=== PATIENT | female | born 1965 | race Caucasian/White ===

== ENCOUNTER 2024-04-30 11:13 | Emergency (ER) | payer MEDICAID, SELFPAY ==
--- NOTE | 2024-04-30 11:32 | XR_ITS ---
Examination: Shoulder,right, 3 views Technique: Shoulder AP internal rotation, AP external rotation, Y view shoulder, 3 views Exam date and time :April 30, 2024 1155 hours INDICATIONS: Right shoulder pain beginning 4 days ago. FINDINGS: Moderate osteopenia Moderate narrowing glenohumeral joint No shoulder fracture or dislocation Moderate osteoarthritis acromioclavicular joint IMPRESSION: Moderate osteoarthritis
[2024-04-30 11:33] VITALS: BP 147/78; PULSE 107; RESP 18; TEMP 36.6; O2SAT 97; BMI 44.0
--- NOTE | 2024-04-30 11:35 | PD.EDUPEX ---
Upper Extremity Injury RME/HPI General Chief Complaint: Extremity Injury, Upper Stated Complaint: RIGHT SHOULDER PAIN Time Seen by Provider: 04/30/24 11:17 Arrival date/time: 04/30/24 11:13 58-year-old female with chronic right shoulder pain presents emergency department today stating that her pain in her right shoulder has exacerbated the last 4 days patient does report having surgery on her right shoulder 8 months ago Limitations: no limitations Related Data Previous Rx's ?Medication ?Instructions ?Recorded ipratropium 0.5 mg-albuterol 3 mg 3 ml inhalation QID PRN shortness 01/28/22 (2.5 mg base)/3 mL nebulization of breath or wheezing #90 mL soln albuterol sulfate 2.5 mg/3 mL 2.5 mg (3 mL) inhalation Q4H PRN 11/13/22 (0.083 %) solution for nebulization shortness of breath or wheezing #90 mL nystatin-triamcinolone 100,000 1 applic topical TID #60 grams 11/13/22 unit/g-0.1 % topical cream albuterol sulfate 90 mcg/actuation 2 puff inhalation Q6H PRN 11/16/22 aerosol inhaler shortness of breath or wheezing #8.5 grams cyclobenzaprine 10 mg tablet 10 mg PO TID PRN muscle spasm 10 04/30/24 days #30 tab-caps ibuprofen 600 mg tablet 600 mg PO Q6H #30 tabs 04/30/24 Allergies Allergy/AdvReac Type Severity Reaction Status Date / Time Penicillins Allergy Intermediate RASH Verified 11/16/22 08:50 Sulfa (Sulfonamide Allergy Unknown ORAL Verified 11/16/22 08:50 Antibiotics) SWELLING hydrogen peroxide Allergy Verified 11/16/22 08:50 codeine AdvReac Intermediate STOMACH Verified 10/09/22 08:18 UPSET Review of Systems Review of Systems Systems Reviewed: All systems reviewed, normal except as documented Constitutional Constitutional: Reports system reviewed and no additional complaints, except as documented, Denies fever(s) and Denies headache(s) Eyes Eyes: Reports system reviewed and no additional complaints, except as documented and Denies blurry vision ENT Ears, Nose, Mouth, and Throat: Reports system reviewed and no additional complaints, except as documented, Denies headache(s), Denies nasal congestion and Denies nasal discharge Cardiovascular Cardiovascular: Reports system reviewed and no additional complaints, except as documented, Denies chest pain and Denies dyspnea Respiratory Respiratory: Reports system reviewed and no additional complaints, except as documented, Denies chest congestion, Denies cough and Denies dyspnea Gastrointestinal Gastrointestinal: Reports system reviewed and no additional complaints, except as documented and Denies abdominal pain Musculoskeletal Musculoskeletal: Reports system reviewed and no additional complaints, except as documented, Reports arthralgias, Denies joint swelling, Denies numbness, Reports stiffness and Denies tingling Integumentary/Breasts Skin/Breast: Reports system reviewed and no additional complaints, except as documented and Denies rash Neurologic Neurologic: Reports system reviewed and no additional complaints, except as documented, Reports as per HPI, Denies headache(s), Denies numbness and Denies tingling Past Medical History Past Medical History NEUROLOGIC: Negative Neurological Disorders CARDIAC: Negative Congestive Heart Failure RESPIRATORY: Positive Chronic Obstructive Pulmonary Disease (COPD) and Asthma GENITOURINARY: Negative Renal Disease MUSCULOSKELETAL: Positive Arthritis, Degenerative Disk Disease and Degenerative Joint Disease ENDOCRINE: Negative Diabetes Mellitus Type 1 or Diabetes Mellitus Type 2 Surgical History SURGICAL: Positive Tubal Ligation Social History SMOKING STATUS: Heavy (> 1 pack/day) SECOND HAND EXPOSURE: Yes ED Exam General Limitations: Present no limitations General appearance: Present alert and in no apparent distress Head Head exam: Present atraumatic Eye Eye exam: Present normal appearance, PERRL and EOMI ENT ENT exam: Present normal exam, normal oropharynx and mucous membranes moist Neck Neck exam: Present normal inspection, full ROM and trachea midline Chest Chest inspection: Present normal inspection and symmetric chest wall rise Respiratory Respiratory exam: Present normal lung sounds bilaterally Cardiovascular Cardiovascular exam: Present regular rate, normal rhythm and normal heart sounds Abdominal Exam Abdominal exam: Present soft and normal bowel sounds Extremities Exam Extremities exam: Present normal inspection, full ROM, tenderness and normal capillary refill; Absent joint swelling Back Exam Back exam: Present normal inspection and full ROM Neurological Exam Neurological exam: Present alert, oriented X3 and CN II-XII intact Psychiatric Psychiatric exam: Present normal affect and normal mood Skin Skin exam: Present warm, dry, intact and normal color Course Quality Measures none Orders Category Date Time Status XR shoulder RT min 2V Stat Exams 04/30/24 11:32 Completed Ketorolac Inj [Toradol Inj] Med 04/30/24 11:32 Discontinued 30 mg IM X1 ONE Vital Signs Vital signs: Vital Signs Temperature 97.9 F 04/30/24 11:33 Pulse Rate 107 H 04/30/24 11:33 Respiratory Rate 18 04/30/24 11:33 Blood Pressure 147/78 H 04/30/24 11:33 Pulse Oximetry (%) 97 04/30/24 11:33 Oxygen Delivery Method Room Air 04/30/24 11:33 o2 sat 97% r/a wnl Extremity Injury MDM Narrative MDM Narrative:: 58-year-old female with chronic right shoulder pain presents emergency department today stating that her pain in her right shoulder has exacerbated the last 4 days patient does report having surgery on her right shoulder 8 months ago X-ray right shoulder obtained no acute emergent findings noted Patient given Toradol for pain Patient discharged home with pain medication Explained the patient she must follow-up with her primary care doctor or specialist and request outpatient MRI for further evaluation and treatment Patient data External records reviewed:: [facility] previous records Clinical information provided by:: patient Social determinants that could affect healthcare access:: none Patient has the following chronic illnesses:: See history How is presenting disease/condition affected by chronic disease/condition?: caused by Evaluation data The following diagnostics were reviewed and interpreted by me:: radiology exam(s) Lab and/or radiology exams considered but not ordered:: Radiology obtained Interpretation Summary: Reviewed by me Medications / Prescriptions Medications or Prescriptions considered but not ordered:: Given Medication administrations:: Medication Administration History Discontinued Medications Ketorolac Tromethamine (Ketorolac Inj 30 Mg/Ml Vial) 30 mg IM X1 ONE Stop: 04/30/24 11:33 Last Admin: 04/30/24 11:38 Dose: 30 mg Documented By: MP Given Consultations Consultation(s) initiated? (list below): No Diagnosis Upper Extremity Injury Differential Diagnosis: other (Shoulder sprain, shoulder fracture) Most likely diagnosis given after review of the tests above:: Shoulder sprain Admission Indicated Admission indicated?: not indicated Admission Request Was there a request for admission?: No Disposition Plan Disposition Plan: Discharge Discharge Attestation Discharge Attestation: The patient and all family members were given an opportunity to ask questions and understood the discharge instructions. Discharge instructions specifically effects, indications for sooner follow up or return to the emergency department, and the expected course of current diagnosis. Patient condition: Stable Discharge Plan Plan Patient Disposition: HOME (Self Care) Disposition Comment: Stable Prescriptions/Referrals Prescriptions/Med Rec: New cyclobenzaprine 10 mg tablet 10 mg PO TID PRN (Reason: muscle spasm) 10 Days Qty: 30 0RF ibuprofen 600 mg tablet 600 mg PO Q6H Qty: 30 0RF No Action albuterol sulfate 2.5 mg /3 mL (0.083 %) solution for nebulization 2.5 mg inhalation Q4H PRN (Reason: shortness of breath or wheezing) Qty: 90 0RF nystatin-triamcinolone 100,000-0.1 unit/g-% cream 1 applic topical TID Qty: 60 1RF albuterol sulfate 90 mcg/actuation HFA aerosol inhaler 2 puff inhalation Q6H PRN (Reason: shortness of breath or wheezing) Qty: 8.5 3RF ipratropium-albuterol 0.5 mg-3 mg(2.5 mg base)/3 mL solution for nebulization 3 ml inhalation QID PRN (Reason: shortness of breath or wheezing) Qty: 90 0RF Referrals: Juancho Rudolph PA-C [Primary Care Provider] - 05/01/24 Problem List Clinical Impression: Osteoarthritis of right shoulder region Patient/Caregiver Discharge Instructions Education Materials: Osteoarthritis Additional Instructions: Please follow-up with your orthopedist as discussed for worsening symptoms return immediately Print Language: Mohawk Stand Alone Forms: Cady Award Info., Patient Portal Info Letter PA/FRANCESCO Supervising Physician JANNETH/FRANCESCO Supervising Physician: Dr. Stanton
[2024-04-30] MEDS: KETOROLAC INJ 30 MG/ML VIAL IM (11:38)
== END 2024-04-30 13:10 | disposition home or self-care (01) ==
PROVIDERS: Emergency Provider Emergency Medicine; PCP Family Medicine
DX: M19.011 Primary osteoarthritis, right shoulder (principal)
CPT/HCPCS: 73030; 96372; 99283; J1885

== ENCOUNTER 2024-05-21 09:09 | Emergency (ER) | payer MEDICAID, SELFPAY ==
[2024-05-21 09:21] VITALS: BP 133/76; PULSE 93; RESP 20; TEMP 37.1; O2SAT 96; BMI 44.4
--- NOTE | 2024-05-21 09:26 | XR_ITS ---
Examination: PA lateral chest 2 views TECHNIQUE: Upright PA lateral chest 2 views Exam date and time: May 21, 2024 0949 hours Comparison June 17, 2022 INDICATIONS: Coughing beginning 2 weeks ago. FINDINGS: Accentuation basilar bronchovascular markings Normal heart size No lobar pneumonia IMPRESSION: Basilar bronchitis pattern
[2024-05-21] MEDS: DEXAMETHASONE SOD PHOS INJ 10 MG/ML VIAL PO (09:45)
[2024-05-21] MEDS: ALBUTEROL/IPRATROPIUM (Duoneb) RT SOL 3 ML NEBU INH ×2 (10:12→10:14)
[2024-05-21 10:16] VITALS: PULSE 93; RESP 21; O2SAT 99
--- NOTE | 2024-05-21 10:59 | PD.EDADULT ---
ED General RME/HPI General Chief complaint: General Adult/Misc Complain Stated complaint: NOT FEELING RIGHT, SICK SINCE SAT Time Seen by Provider: 05/21/24 09:17 Arrival date/time: 05/21/24 09:09 58-year-old female everyday smoker presents the emergency department complaints of cough, congestion, headache, body aches ongoing since Sunday. Patient reports recently taking course of antibiotics/azithromycin as well as a course of steroids patient reports her symptoms have not improved Limitations: no limitations Related Data Previous Rx's ?Medication ?Instructions ?Recorded ipratropium 0.5 mg-albuterol 3 mg 3 ml inhalation QID PRN shortness 01/28/22 (2.5 mg base)/3 mL nebulization of breath or wheezing #90 mL soln albuterol sulfate 2.5 mg/3 mL 2.5 mg (3 mL) inhalation Q4H PRN 11/13/22 (0.083 %) solution for nebulization shortness of breath or wheezing #90 mL nystatin-triamcinolone 100,000 1 applic topical TID #60 grams 11/13/22 unit/g-0.1 % topical cream albuterol sulfate 90 mcg/actuation 2 puff inhalation Q6H PRN 11/16/22 aerosol inhaler shortness of breath or wheezing #8.5 grams ibuprofen 600 mg tablet 600 mg PO Q6H #30 tabs 04/30/24 amoxicillin 875 mg-potassium 1 tab PO BID 7 days #14 tabs 05/21/24 clavulanate 125 mg tablet prednisone 10 mg tablet 30 mg (3 x 10 mg) PO BID 3 days 05/21/24 #18 tabs Allergies Allergy/AdvReac Type Severity Reaction Status Date / Time Penicillins Allergy Intermediate RASH Verified 11/16/22 08:50 Sulfa (Sulfonamide Allergy Unknown ORAL Verified 11/16/22 08:50 Antibiotics) SWELLING hydrogen peroxide Allergy Verified 11/16/22 08:50 codeine AdvReac Intermediate STOMACH Verified 10/09/22 08:18 UPSET Review of Systems Respiratory Respiratory: Reports system reviewed and no additional complaints, except as documented, Reports chest congestion, Reports cough, Reports excessive phlegm production and Reports wheezing Allergic/Immunologic Allergic/Immunologic: Reports wheezing Past Medical History Past Medical History NEUROLOGIC: Negative Neurological Disorders CARDIAC: Negative Congestive Heart Failure RESPIRATORY: Positive Chronic Obstructive Pulmonary Disease (COPD) and Asthma GENITOURINARY: Negative Renal Disease MUSCULOSKELETAL: Positive Arthritis, Degenerative Disk Disease and Degenerative Joint Disease ENDOCRINE: Negative Diabetes Mellitus Type 1 or Diabetes Mellitus Type 2 Surgical History SURGICAL: Positive Tubal Ligation Social History SMOKING STATUS: Current every day smoker SECOND HAND EXPOSURE: Yes ED Exam General Limitations: Present no limitations General appearance: Present alert and in no apparent distress Head Head exam: Present atraumatic, normocephalic and normal inspection Eye Eye exam: Present normal appearance, PERRL and EOMI; Absent conjunctival injection ENT ENT exam: Present normal exam, normal oropharynx and mucous membranes moist Neck Neck exam: Present normal inspection, full ROM and trachea midline Chest Chest inspection: Present normal inspection and symmetric chest wall rise Respiratory Respiratory exam: Present wheezes and other (Rhonchi bilateral); Absent respiratory distress, stridor or accessory muscle use Cardiovascular Cardiovascular exam: Present regular rate, normal rhythm and normal heart sounds Abdominal Exam Abdominal exam: Present soft and normal bowel sounds; Absent distention, tenderness, guarding, rebound or rigidity Extremities Exam Extremities exam: Present normal inspection and full ROM Back Exam Back exam: Present normal inspection and full ROM Neurological Exam Neurological exam: Present alert, oriented X3 and CN II-XII intact Psychiatric Psychiatric exam: Present normal affect and normal mood Skin Skin exam: Present warm, dry, intact and normal color Course Quality Measures none Orders Category Date Time Status Bedside Influenza A&B Antigen Test NOW Care 05/21/24 09:26 Completed XR chest 2V Stat Exams 05/21/24 09:26 Completed Albuterol/Ipratr Rt Tana [Duoneb Rt Tana] Med 05/21/24 09:26 Discontinued 3 ml INH X1 ONE Albuterol/Ipratr Rt Tana [Duoneb Rt Tana] Med 05/21/24 09:54 Discontinued 3 ml INH X1 ONE Dexamethasone Inj [Decadron Inj] Med 05/21/24 09:26 Discontinued 10 mg PO X1 ONE Vital Signs Vital signs: Vital Signs Temperature 98.7 F 05/21/24 09:21 Pulse Rate 93 05/21/24 09:21 Respiratory Rate 20 05/21/24 09:21 Blood Pressure 133/76 H 05/21/24 09:21 Pulse Oximetry (%) 96 05/21/24 09:21 Oxygen Delivery Method Room Air 05/21/24 09:21 O2 saturation 96% room air within normal limits MDM Patient data External records reviewed:: [facility] previous records Clinical information provided by:: patient Social determinants that could affect healthcare access:: none Patient has the following chronic illnesses:: See history How is presenting disease/condition affected by chronic disease/condition?: exacerbated by Evaluation data The following diagnostics were reviewed and interpreted by me:: lab results and radiology exam(s) Lab and/or radiology exams considered but not ordered:: Labs and radiology obtained Interpretation Summary: Reviewed by me Medications Medications considered but not ordered:: Given Medication administrations:: Medication Administration History Discontinued Medications Albuterol/Ipratropium (Albuterol/Ipratropium (Duoneb) Rt Tana 3 Ml Nebu) 3 ml INH X1 ONE Stop: 05/21/24 09:27 Last Admin: 05/21/24 10:12 Dose: 3 ml Documented By: ZAYNAB Albuterol/Ipratropium (Albuterol/Ipratropium (Duoneb) Rt Tana 3 Ml Nebu) 3 ml INH X1 ONE Stop: 05/21/24 09:55 Last Admin: 05/21/24 10:14 Dose: 3 ml Documented By: ZAYNAB Dexamethasone Sodium Phosphate (Dexamethasone Sod Phos Inj 10 Mg/Ml Vial) 10 mg PO X1 ONE Stop: 05/21/24 09:27 Last Admin: 05/21/24 09:45 Dose: 10 mg Documented By: CHONG Given Consultations Consultation(s) initiated? (list below): No Diagnosis Differential Diagnosis ED Complaint MDM: URI, viral illness, COVID-19, pneumonia Most likely diagnosis given after review of the tests above:: URI, wheezing Admission Indicated Admission indicated?: not indicated Explain why admission is indicated or not indicated:: No criteria Admission Request Was there a request for admission?: No Disposition Plan Disposition Plan: Discharge Discharge Attestation Discharge Attestation: The patient and all family members were given an opportunity to ask questions and understood the discharge instructions. Discharge instructions specifically effects, indications for sooner follow up or return to the emergency department, and the expected course of current diagnosis. Patient condition: Stable Medical Decision Making MDM Narrative MDM Narrative: 58-year-old female everyday smoker presents the emergency department complaints of cough, congestion, headache, body aches ongoing since Sunday. Patient reports recently taking course of antibiotics/azithromycin as well as a course of steroids patient reports her symptoms have not improved On exam patient is sinus tenderness patient reports no dizziness or weakness On exam patient has wheezing and rhonchi bilateral upper lobes Patient given breathing treatment as well as steroids here Chest x-ray obtained no acute infiltrates noted but x-ray consistent with bronchitis which is consistent with patient's symptoms Patient checked for the flu which came back negative At the time reevaluation patient reports that she does feel her symptoms have improved At the time of discharge patient reports no chest pain or shortness of breath I did explain to the patient she should continue seeing her albuterol nebulizer treatments at home every 4-6 hours Patient discharged home in no distress to follow-up with primary care doctor in the next 24 to 48 hours and for any worsening symptoms to return to the ER immediately Differential Diagnosis Differential Diagnosis: URI, viral illness, COVID-19, pneumonia Medical Records Medical records reviewed: Yes I reviewed the patient's medical records. Discharge Plan Plan Patient Disposition: HOME (Self Care) Disposition Comment: Stable Prescriptions/Referrals Prescriptions/Med Rec: New prednisone 10 mg tablet 30 mg PO BID 3 Days Qty: 18 0RF amoxicillin-pot clavulanate 875-125 mg tablet 1 tab PO BID 7 Days Qty: 14 0RF No Action albuterol sulfate 2.5 mg /3 mL (0.083 %) solution for nebulization 2.5 mg inhalation Q4H PRN (Reason: shortness of breath or wheezing) Qty: 90 0RF nystatin-triamcinolone 100,000-0.1 unit/g-% cream 1 applic topical TID Qty: 60 1RF albuterol sulfate 90 mcg/actuation HFA aerosol inhaler 2 puff inhalation Q6H PRN (Reason: shortness of breath or wheezing) Qty: 8.5 3RF ipratropium-albuterol 0.5 mg-3 mg(2.5 mg base)/3 mL solution for nebulization 3 ml inhalation QID PRN (Reason: shortness of breath or wheezing) Qty: 90 0RF ibuprofen 600 mg tablet 600 mg PO Q6H Qty: 30 0RF Referrals: Juancho Rudolph PA-C [Primary Care Provider] - In 1 week Problem List Clinical Impression: Bronchitis, Wheezing Patient/Caregiver Discharge Instructions Education Materials: ED Bronchitis with Wheezing (Adult) Additional Instructions: Please follow up with your primary care doctor in the next 24-48hrs for any worsening symptoms return here immediately Print Language: [place] Rican Stand Alone Forms: Cady Award Info., Patient Portal Info Letter PA/STORES CLERK Supervising Physician PA/STORES CLERK Supervising Physician: Dr. Stanton
== END 2024-05-21 11:07 | disposition home or self-care (01) ==
PROVIDERS: Emergency Provider Emergency Medicine; PCP Family Medicine
DX: J40 Bronchitis, not specified as acute or chronic (principal)
CPT/HCPCS: 71046; 87400; 94640; 99283; A9270; J1100

== ENCOUNTER 2024-07-05 06:56 | Emergency (ER) | payer MEDICAID, SELFPAY ==
[2024-07-05 06:57] VITALS: BMI 43.4
[2024-07-05 07:24] VITALS: BP 139/86; PULSE 85; RESP 16; TEMP 36.7; O2SAT 96
--- NOTE | 2024-07-05 07:39 | PD.EDRME ---
Rapid Medical Screening Exam RME Arrival date/time: 07/05/24 06:56 This is a 58-year-old female presents to the emergency department with complaints of dizziness that began at 6 AM upon awakening. + Nausea, no emesis. I have greeted and performed a focused initial assessment of this patient. Initial appropriate labs ordered at this time. A comprehensive ED assessment and evaluation of the patient and analysis of all test and completion of medical decision making process will be conducted by additional ED provider. Chief Complaint: Dizziness Time Seen by Provider: 07/05/24 07:14 Vital signs: Vital Signs Temperature 98.0 F 07/05/24 07:24 Pulse Rate 85 07/05/24 07:24 Respiratory Rate 16 07/05/24 07:24 Blood Pressure 139/86 H 07/05/24 07:24 Pulse Oximetry (%) 96 07/05/24 07:24 Oxygen Delivery Method Room Air 07/05/24 07:24
--- NOTE | 2024-07-05 07:40 | EKG_ITS ---
[facility] Test Date: 2024-07-05 Pat Name: LESLEY HUTCHINSON Department: Room: - Gender: Female Health Information Tech: : 1965 Requested By: Usha Mtz ([facility]) Dandre Order Number: [id number] Reading MD: Usha Mtz ([facility]) Dandre Measurements Intervals Alba Rate: 83 P: 52 LA: 155 QRS: 61 QRSD: 92 T: 58 QT: 343 QTc: 405 Interpretive Statements SINUS RHYTHM LOW QRS VOLTAGE IN PRECORDIAL LEADS [QRS DEFLECTION < 1.0 mV IN CHEST LEADS] No previous ECG available for comparison /[id number]/S0/[id number].pdf
--- NOTE | 2024-07-05 07:40 | XR_ITS ---
Examination: AP chest single view Technique or represent to chest single view Exam date and time: July 05, 2024 0812 hours Comparison May 21, 2024 INDICATIONS: Dizziness today. FINDINGS: Mild vascular congestion No aspiration pneumonia Normal heart size Moderate osteopenia IMPRESSION: No aspiration pneumonia
--- NOTE | 2024-07-05 07:40 | XR_ITS ---
Examination: CT brain head without contrast. 2-D sagittal coronal reconstructions Date and time of exam:July 05, 2024 0750 hours Comparison October 02, 2016 INDICATIONS: Dizziness beginning this morning CTDI: vol (mGy):75.9 DLP: (mGycm):1493 Technique: Multiple CT axial sections of the brain have been obtained, 5 mm slice thickness. Contrast has not been administered. 2-D sagittal, coronal reconstructions have been obtained Low dose protocols were performed. One or more of the following dose reduction techniques were used; automated exposure control, adjustment of the mA and/or KV according to patient size, use of iterative reconstruction technique. Findings: No significant ventricular enlargement. Intra-axial or extra-axial hemorrhage density is not seen. No mass effect or midline shift Basal cisterns are not remarkable. Fourth ventricle is midline. Cranial vault intact. Impression: Negative for acute hemorrhage, mass effect or midline shift If symptoms persist, consider brain MRI follow-up
[2024-07-05] MEDS: MECLIZINE HCL 25 MG TABLET PO ×2 (07:45→11:40)
[2024-07-05 08:29] LABS: Prothrombin Time 10.9 Seconds (9.0-12.2)
[2024-07-05 08:35] LABS: Basophils # (Auto) 0.1 Thou/mm3 (0.0-0.2); Basophils % (Auto) 1 % (0-2.5); Eosinophils # (Auto) 0.2 Thou/mm3 (0.0-0.5); Eosinophils % (Auto) 2 % (0-10); Hematocrit 44.9 % (36.0-46.0); Hemoglobin 15.1 g/dL (12.0-16.0); Immature Granulocytes % (Auto) 0 % (0-0); Immature Granulocytes Auto 0.04 Thou/mm3 (0.00-0.00); Lymphocytes # (Auto) 2.2 Thou/mm3 (1.0-4.8); Lymphocytes % (Auto) 20 % (10-50); Mean Corpuscular HGB Conc 33.6 g/dl (31.0-37.0); Mean Corpuscular Hemoglobin 30.4 pg (25.0-35.0); Mean Corpuscular Volume 90 fL (80-100); Monocytes # (Auto) 0.6 Thou/mm3 (0.0-0.8); Monocytes % (Auto) 6 % (0-12); Neutrophils # (Auto) 7.9 Thou/mm3 (1.8-7.7); Neutrophils % (Auto) 72 % (37-80); Nucleated Red Blood Cell % 0 /100 WBC (0); Platelet Count 315 Thou/mm3 (140-440); RDW Standard Deviation 44.4 fL (36.4-46.3); Red Blood Count 4.97 Miln/mm3 (4.00-5.20)
[2024-07-05 08:47] LABS: Alanine Aminotransferase 11 U/L (10-49); Albumin, Serum 4.7 gm/dL (3.5-5.0); Albumin/Globulin Ratio 1.5 (1.2-2.2); Alkaline Phosphatase 160 U/L (46-116); Anion Gap 6 (7-16); Aspartate Amino Transferase < 10 U/L (0-34); BUN/Creatinine Ratio 8 Ratio (12-20); Bilirubin,Total 0.3 mg/dL (0.3-1.2); Blood Urea Nitrogen 7 mg/dL (9-23); Calcium 9.7 mg/dL (8.3-10.6); Calcium (Corrected) 9.7 mg/dL (8.5-10.1); Carbon Dioxide 26.9 mMol/L (20.0-31.0); Chloride 105 mMol/L (98-107); Creatinine (Component) 0.9 mg/dL (0.6-1.3); Estimated Creatinine Clearance 69.8 mL/min (>60); Globulin 3.1 gm/dL (2.3-3.5); Glucose 145 mg/dL (74-106); Osmolality,Calculated 276 (275-295); Potassium 4.6 mMol/L (3.4-5.1); Sodium 138 mMol/L (136-145); Total Protein 7.8 gm/dL (5.7-8.2); Troponin I < 0.002 ng/mL (0.0-0.045); eGFR > 60 See Note
[2024-07-05 09:16] LABS: Collection Type, Urine Clean Catch
[2024-07-05 09:30] LABS: Amphetamine/Methamp Scrn,U Negative (Negative); Barbiturate Screen,Urine Negative (Negative); Benzodiazepines Screen,Urine Negative (Negative); Benzoylecgonine Screen, Ur Negative (Negative); Fentanyl Screen,Urine Negative (Negative); Opiate Screen,Urine Negative (Negative); THC Screen,Urine Negative (Negative)
[2024-07-05 10:11] LABS: Bacteria,Urine 1+; Bilirubin,Urine Negative (Negative); Blood,Urine Negative (Negative); Color,Urine Lt-Yellow (Lt Yel-Yel); Glucose, Urine Negative (Negative); Granular Casts,Urine < 1 /hpf (0-1); Ketones,Urine Negative (Negative); Leukocyte Esterase,Urine Negative (Negative); Nitrite,Urine Negative (Negative); PH,Urine 5.5 (5.0-7.0); Protein,Urine Trace (Neg - Trace); RBC,Urine 2 /hpf (0-3); Specific Gravity,Urine 1.013 (1.001-1.035); Squamous Epithelial Cell,Urine 6 /hpf (0-5); Transitional Epi Cells,Urine < 1 /hpf (0-5); Urobilinogen,Urine Negative mg/dL (0.0-1.0); WBC,Urine 4 /hpf (0-5)
[2024-07-05 10:15] LABS: Clarity,Urine Hazy (Clear/Hazy)
--- NOTE | 2024-07-05 11:34 | EDNOTE_ITS ---
ED Dizzyness RME/HPI General Chief Complaint: Dizziness Stated Complaint: DIZZINESS WITH BLURRY VISION Time Seen by Provider: 07/05/24 07:14 Arrival date/time: 07/05/24 06:56 RME / HPI RME / HPI Narrative: 58-year-old female patient with no significant medical history, came in for evaluation regarding dizziness. Patient woke up this morning with dizziness, described as feeling like falling off the bed, room spinning, and blurry vision, severity of symptoms moderate. Patient also vomited once today. Nonbloody. Patient denies any neck pain. Denies any headache. Patient is having difficulty ambulating due to dizziness without holding onto something. Patient denies any fever. Denies any head injury or recent trauma. No medication was taken prior to arrival. Related Data Previous Rx's ?Medication ?Instructions ?Recorded ipratropium 0.5 mg-albuterol 3 mg 3 ml inhalation QID PRN shortness 01/28/22 (2.5 mg base)/3 mL nebulization of breath or wheezing #90 mL soln albuterol sulfate 2.5 mg/3 mL 2.5 mg (3 mL) inhalation Q4H PRN 11/13/22 (0.083 %) solution for nebulization shortness of breath or wheezing #90 mL nystatin-triamcinolone 100,000 1 applic topical TID #60 grams 11/13/22 unit/g-0.1 % topical cream albuterol sulfate 90 mcg/actuation 2 puff inhalation Q6H PRN 11/16/22 aerosol inhaler shortness of breath or wheezing #8.5 grams ibuprofen 600 mg tablet 600 mg PO Q6H #30 tabs 04/30/24 meclizine 50 mg tablet 50 mg PO BID PRN dizziness #30 tabs 07/05/24 Allergies Allergy/AdvReac Type Severity Reaction Status Date / Time Penicillins Allergy Intermediate RASH Verified 11/16/22 08:50 Sulfa (Sulfonamide Allergy Unknown ORAL Verified 11/16/22 08:50 Antibiotics) SWELLING hydrogen peroxide Allergy Verified 11/16/22 08:50 codeine AdvReac Intermediate STOMACH Verified 10/09/22 08:18 UPSET Review of Systems Review of Systems Narrative Review of Systems: Review of system reviewed and within normal limits except mentioned in HPI ED Exam Narrative Physical exam: VITAL SIGNS: Reviewed. GENERAL APPEARANCE: Alert and interactive, follows commands, no acute distress, HEAD AND FACE: Non-traumatic. ENT: PERRL, pink conjunctivitis, eyelid no trauma, Mucous membrane moist. Bilateral tympanic membrane orthospine no bulging no fluid noted behind tympanic membrane NECK: Supple, nontender, no nuchal rigidity. CHEST: No tenderness, no crepitus, no paradoxical movement, no retractions. LUNGS: Clear, well ventilated, symmetric, no rales, no wheezing, no ronchi, no stridor, good breath sounds bilaterally. HEART: Regular rate, regular rhythm, no murmur, no gallops. ABDOMEN: Soft, positive bowel sounds, nondistended, no guarding, nontender, no rebound, no masses, RECTAL: Deferred. GENITAL: Deferred. NEUROLOGICAL: Gross motor function intact sensory function intact, Appropriate for age. MUSCULOSKELETAL: low back nontender, full range of motion. EXTREMITIES: Nontender, full range of motion. SKIN: Color pink, dry, no rash, no lacerations, no abrasions, no contusions. LYMPHATICS: Deferred. 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 07/05/24 07:40 Active EKG (ED ONLY) *Do not use* NOW Care 07/05/24 07:[address] head/brain wo con Stat Exams 07/05/24 07:40 Completed EKG (ED Only) Stat Exams 07/05/24 07:40 Draft XR chest 1V portable Stat Exams 07/05/24 07:40 Completed CBC Stat Lab 07/05/24 07:59 Completed Comprehensive Metabolic Panel Stat Lab 07/05/24 07:59 Completed Drug Screen,Urine Stat Lab 07/05/24 08:14 Completed Prothrombin Time with INR Stat Lab 07/05/24 07:59 Completed Troponin I Stat Lab 07/05/24 07:59 Completed Urinalysis Stat Lab 07/05/24 08:14 Completed Acetaminophen Tab [Tylenol ES Tab] Med 07/05/24 11:33 Discontinued 1,000 mg PO X1 ONE Meclizine HCl [Antivert] Med 07/05/24 07:40 Discontinued 25 mg PO X1 ONE Meclizine HCl [Antivert] Med 07/05/24 11:33 Discontinued 25 mg PO X1 ONE Sodium Chloride 0.9% 1000 ml [Ns] 1,000 ml Med 07/05/24 11:34 Discontinued IV 999 mls/hr Vital Signs Vital signs: Vital Signs Temperature 98.0 F 07/05/24 07:24 Pulse Rate 85 07/05/24 07:24 Respiratory Rate 16 07/05/24 07:24 Blood Pressure 139/86 H 07/05/24 07:24 Pulse Oximetry (%) 96 07/05/24 07:24 Oxygen Delivery Method Room Air 07/05/24 07:24 Dizziness [facility] Narrative [facility] Narrative:: 58-year-old female patient with no significant medical history, came in for evaluation regarding dizziness. Patient woke up this morning with dizziness, described as feeling like falling off the bed, room spinning, and blurry vision, severity of symptoms moderate. Patient also vomited once today. Nonbloody. Patient denies any neck pain. Denies any headache. Patient is having difficulty ambulating due to dizziness without holding onto something. Patient denies any fever. Denies any head injury or recent trauma. No medication was taken prior to arrival. Laboratory workup including CT scan of the head came back normal. Patient was given meclizine Tylenol and IV fluids. On reevaluation patient was going to the restroom unaided with no recurrence of dizziness. Patient verbalized significant improvement symptoms. Patient appears nontoxic and hemodynamically stable. Patient discharged home and instructed to follow-up with primary care provider in 24 to 48 hours. Instructed to return to the emergency department immediately if worsening of symptoms Patient data External records reviewed:: None Clinical information provided by:: none Social determinants that could affect healthcare access:: none Patient has the following chronic illnesses:: None How is presenting disease/condition affected by chronic disease/condition?: no chronic disease Evaluation data The following diagnostics were reviewed and interpreted by me:: lab results and radiology exam(s) Lab and/or radiology exams considered but not ordered:: None Interpretation Summary: See results in [facility] Medications / Prescriptions Medications or Prescriptions considered but not ordered:: None Medication administrations:: Medication Administration History Discontinued Medications Acetaminophen (Acetaminophen 500 Mg Tablet) 1,000 mg PO X1 ONE Stop: 07/05/24 11:34 Last Admin: 07/05/24 11:39 Dose: 1,000 mg Documented By: Sita Sodium Chloride (Ns) 1,000 mls @ 999 mls/hr IV .Q1H1M ONE Stop: 07/05/24 12:34 Last Infusion: 07/05/24 12:30 Dose: Infused Documented By: Admin: 07/05/24 11:45 Dose: 999 mls/hr Documented By: JASON Meclizine HCl (Meclizine Hcl 25 Mg Tablet) 25 mg PO X1 ONE Stop: 07/05/24 07:41 Last Admin: 07/05/24 07:45 Dose: 25 mg Documented By: [facility] Meclizine HCl (Meclizine Hcl 25 Mg Tablet) 25 mg PO X1 ONE Stop: 07/05/24 11:34 Last Admin: 07/05/24 11:40 Dose: 25 mg Documented By: JASON Meclizine, IV fluids, Tylenol Consultations Consultation(s) initiated? (list below): No Diagnosis Dizziness Differential Diagnosis: adverse reaction to drug, benign paroxysmal positional vertigo and other (Dizziness) Most likely diagnosis given after review of the tests above:: Dizziness Admission Indicated Admission indicated?: not indicated Explain why admission is indicated or not indicated:: Stable Admission Request Was there a request for admission?: No Disposition Plan Disposition Plan: Discharge Discharge Attestation Discharge Attestation: The patient and all family members were given an opportunity to ask questions and understood the discharge instructions. Discharge instructions specifically effects, indications for sooner follow up or return to the emergency department, and the expected course of current diagnosis. Patient condition: Stable Discharge Plan Plan Patient Disposition: HOME (Self Care) Disposition Comment: Stable Prescriptions/Referrals Prescriptions/Med Rec: New meclizine 50 mg tablet 50 mg PO BID PRN (Reason: dizziness) Qty: 30 0RF No Action albuterol sulfate 2.5 mg /3 mL (0.083 %) solution for nebulization 2.5 mg inhalation Q4H PRN (Reason: shortness of breath or wheezing) Qty: 90 0RF nystatin-triamcinolone 100,000-0.1 unit/g-% cream 1 applic topical TID Qty: 60 1RF albuterol sulfate 90 mcg/actuation HFA aerosol inhaler 2 puff inhalation Q6H PRN (Reason: shortness of breath or wheezing) Qty: 8.5 3RF ipratropium-albuterol 0.5 mg-3 mg(2.5 mg base)/3 mL solution for nebulization 3 ml inhalation QID PRN (Reason: shortness of breath or wheezing) Qty: 90 0RF ibuprofen 600 mg tablet 600 mg PO Q6H Qty: 30 0RF Referrals: Juancho Rudolph PA-C [Primary Care Provider] - In 1 week Problem List Clinical Impression: Dizziness Patient/Caregiver Discharge Instructions Discharge Activity: activity as tolerated Education Materials: Dizziness Balance Probs Fainting Additional Instructions: Thank you for the opportunity for serving you today. You are stable for discharged . You are advised to: Follow-up with your PCP in 1 to 2 days Return to ED for worsening of symptoms Increase oral fluids Take medication as prescribed Print Language: Venezuelan Stand Alone Forms: Cady Award Info., Patient Portal Info Letter JANNETH/FRANCESCO Supervising Physician ERIC Supervising Physician: MD Sunita
[2024-07-05] MEDS: ACETAMINOPHEN 500 MG TABLET 1000 MG PO (11:39)
[2024-07-05] MEDS: SODIUM CHLORIDE 0.9% 1000 ML 1,000 ML 999 ML IV (11:45)
== END 2024-07-05 13:16 | disposition home or self-care (01) ==
PROVIDERS: Nurse Practitioner Primary Care; Emergency Provider Emergency Medicine; PCP Family Medicine
DX: R42 Dizziness and giddiness (principal)
CPT/HCPCS: 36415; 70450; 71045; 80053; 80307; 81001; 84484; 85025; 85610; 93005; 96360; 99284; J7030; A9270

== ENCOUNTER 2024-11-04 08:00 | Outpatient (RCR) | payer MEDICAID, SELFPAY ==
--- NOTE | 2024-10-21 08:36 | PT.OIERPT ---
PT OP Initial Eval Patient Information Outpatient Physical Therapy Treatment Date: 10/21/24 Visit Reasons: Vertigo Medical Diagnosis: R42 Treatment Dx #1: dizziness Start of Care: 10/21/24 Date of Onset: 5 months ago Smoking Status Smoking Status: Light (< 1 pack/day) Cessation Counseling Provided: LESLEY was advised that quitting smoking is the single most important factor to protect the health of themselves and their family. Discussed the benefits of quitting smoking with patient. Encouraged patient to quit smoking and provided Cessation assistance materials and resources. Tobacco Use: Cigarette Years smoked: 30 Are you interested in quitting?: Yes Would you like additional Smoking Cessation Counseling?: No Initial Assessment Subjective: Pt is 59 yr old female who reports dizziness x5 months. It feels like the room is spinning and affects her when she sits up, lays down and turns in bed. Sometimes she feels it when she is sitting. PMH: allergies, asthma, borderline diabetic, smoker Pt goal: to get rid of the dizziness Objective: BP: 138/88 manual check Jesus-Hallpike to R: negative nystagmus but subjective dizziness to the L: negative Smooth pursuit: WNL Visual tracking: WNL C/S ArOM: slight dizziness with extension and flexion but no significant ROM deficits. Assessment: Pt presents with negative Brenham-Hallpike testing today but subjective history is consistent with BPPV. Pt requires skilled therapy and has good rehab potential to meet goals if in fact she has BPPV. If not, this may be blood pressure related. 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 Ind with HEP 2. Reduced dizziness ssx by 75% with laying down and sitting up 3. Pt will report 50% less onset of dizziness. Treatment Plan 1. Therex including Odilia maneuvers 2. Manual therapy 3. Modalities as indicated Frequency and Duration: 2x a week for 6 weeks plus the evaluation Certification Dates: 10/21/24 to 01/21/25 Procedure Charges OP PT Eval Mod Complex 30 minutes: Yes
--- NOTE | 2024-10-27 08:29 | PT.ODAYNRPT ---
PT Outpatient Daily Note OP Daily Note Outpatient Physical Therapy Treatment Date: 10/27/24 Visit Reasons: Vertigo Subjective: Same as time of evaluation Objective: See f/S for therex Assessment: Good demo of L Odilia maneuver x3 today with continued dizziness laying down and sitting up. Plan: Continue per POC Length of Time (minutes) of Treatment: 25 Minutes Procedure Charges Therapeutic Exercise 30 minutes: Yes
--- NOTE | 2024-11-04 09:57 | PT.ODAYNRPT ---
PT Outpatient Daily Note OP Daily Note Outpatient Physical Therapy Treatment Date: 11/04/24 Visit Reasons: Vertigo Subjective: Less dizziness since last visit Objective: See f/S for therex Assessment: Good demo of L Odilia maneuver x3 today with less dizziness laying down Plan: Continue per POC Length of Time (minutes) of Treatment: 30 Minutes Procedure Charges Therapeutic Exercise 30 minutes: Yes
== END 2024-11-08 23:59 | disposition home or self-care (01) ==
LOC: CPTX 08:00
PROVIDERS: PCP Family Medicine; Referring Provider Family Medicine; Visit Provider Family Medicine
DX: R42 Dizziness and giddiness (principal); Z71.6 Tobacco abuse counseling; F17.210 Nicotine dependence, cigarettes, uncomplicated
CPT/HCPCS: 97110; 97162

== ENCOUNTER 2024-11-17 07:59 | Outpatient (RCR) | payer MEDICAID, SELFPAY ==
--- NOTE | 2024-11-17 08:20 | PT.ODAYNRPT ---
PT Outpatient Daily Note OP Daily Note Outpatient Physical Therapy Treatment Date: 11/17/24 Visit Reasons: Vertigo Subjective: Less dizziness since last visit Objective: See f/S for therex Assessment: Good demo of L Odilia maneuver x4 today with less dizziness laying down Plan: Continue per POC. Pt will call back if she gets dizzy to schedule. Length of Time (minutes) of Treatment: 30 Minutes Procedure Charges Therapeutic Exercise 15 minutes: Yes
== END 2024-12-08 23:59 | disposition home or self-care (01) ==
LOC: CPTX 07:59
PROVIDERS: PCP Family Medicine; Referring Provider Family Medicine; Visit Provider Family Medicine
DX: R42 Dizziness and giddiness (principal)
CPT/HCPCS: 97110

== ENCOUNTER 2024-12-03 10:05 | Emergency (ER) | payer MEDICAID, SELFPAY ==
[2024-12-03 10:16] VITALS: BP 153/87; PULSE 87; RESP 18; TEMP 36.9; O2SAT 96; BMI 44.2
--- NOTE | 2024-12-03 10:33 | XR_ITS ---
Examination: CT pelvis without intravenous contrast. 2-D sagittal and coronal reconstructions. Date and time of exam:December 03, 2024 1119 hours INDICATIONS: Onset left-sided hip pain today CTDI: vol (mGy) :12.8 DLP: (mGycm) : 155 Technique: Multiple 3 mm axial sections of the pelvis have been obtained with the 64 slice high resolution scanner. 2-D sagittal and coronal reconstructions. Low dose protocols were performed. One or more of the following dose reduction techniques were used; automated exposure control, adjustment of the mA and/or KV according to patient size, use of iterative reconstruction technique. Findings: Sacral segments and iliac bones acetabular regions intact Hips appear intact, mild to moderate narrowing hip joints Contracted urinary bladder 9 mm mass uterine fundus likely fibroid degeneration No pelvic hematoma No bowel obstruction IMPRESSION: Mild to moderate narrowing hip joints
[2024-12-03] MEDS: KETOROLAC INJ 60 MG/2 ML VIAL 30 MG IM (10:46)
--- NOTE | 2024-12-03 12:27 | PD.EDBACK ---
ED Back Injury Pain RME/HPI General Chief Complaint: Back Pain/Injury Stated Complaint: Left side lower back pain X 3 days Time Seen by Provider: 12/03/24 10:24 Arrival date/time: 12/03/24 10:05 59-year-old female presents emergency department today for complaints of left buttock pain radiating down the left leg Limitations: no limitations Related Data Previous Rx's ?Medication ?Instructions ?Recorded ipratropium 0.5 mg-albuterol 3 mg 3 ml inhalation QID PRN shortness 01/28/22 (2.5 mg base)/3 mL nebulization of breath or wheezing #90 mL soln albuterol sulfate 2.5 mg/3 mL 2.5 mg (3 mL) inhalation Q4H PRN 11/13/22 (0.083 %) solution for nebulization shortness of breath or wheezing #90 mL nystatin-triamcinolone 100,000 1 applic topical TID #60 grams 11/13/22 unit/g-0.1 % topical cream albuterol sulfate 90 mcg/actuation 2 puff inhalation Q6H PRN 11/16/22 aerosol inhaler shortness of breath or wheezing #8.5 grams ibuprofen 600 mg tablet 600 mg PO Q6H #30 tabs 04/30/24 meclizine 50 mg tablet 50 mg PO BID PRN dizziness #30 tabs 07/05/24 cyclobenzaprine 10 mg tablet 10 mg PO TID PRN muscle spasm 10 12/03/24 days #30 tab-caps ibuprofen 600 mg tablet 600 mg PO Q6H #30 tabs 12/03/24 Allergies Allergy/AdvReac Type Severity Reaction Status Date / Time Penicillins Allergy Intermediate RASH Verified 12/03/24 10:10 Sulfa (Sulfonamide Allergy Unknown ORAL Verified 12/03/24 10:10 Antibiotics) SWELLING hydrogen peroxide Allergy Verified 12/03/24 10:10 codeine AdvReac Intermediate STOMACH Verified 12/03/24 10:10 UPSET Review of Systems Review of Systems Systems Reviewed: All systems reviewed, normal except as documented Constitutional Constitutional: Reports system reviewed and no additional complaints, except as documented, Denies fever(s) and Denies headache(s) Eyes Eyes: Reports system reviewed and no additional complaints, except as documented and Denies blurry vision ENT Ears, Nose, Mouth, and Throat: Reports system reviewed and no additional complaints, except as documented, Denies headache(s), Denies nasal congestion and Denies nasal discharge Cardiovascular Cardiovascular: Reports system reviewed and no additional complaints, except as documented, Denies chest pain and Denies dyspnea Respiratory Respiratory: Reports system reviewed and no additional complaints, except as documented, Denies chest congestion, Denies cough and Denies dyspnea Gastrointestinal Gastrointestinal: Reports system reviewed and no additional complaints, except as documented and Denies abdominal pain Musculoskeletal Musculoskeletal: Reports system reviewed and no additional complaints, except as documented, Denies abnormal gait, Denies arthralgias, Denies back pain, Denies deformity, Denies numbness, Reports radiating pain into limb, Reports stiffness, Denies tingling and Reports other (Left buttock pain radiating down the lower left leg) Integumentary/Breasts Skin/Breast: Reports system reviewed and no additional complaints, except as documented and Denies rash Neurologic Neurologic: Reports system reviewed and no additional complaints, except as documented, Reports as per HPI, Denies abnormal gait, Denies headache(s), Denies numbness and Denies tingling Past Medical History Past Medical History NEUROLOGIC: Negative Neurological Disorders CARDIAC: Negative Congestive Heart Failure RESPIRATORY: Positive Chronic Obstructive Pulmonary Disease (COPD) and Asthma GENITOURINARY: Negative Renal Disease MUSCULOSKELETAL: Positive Arthritis, Degenerative Disk Disease and Degenerative Joint Disease ENDOCRINE: Negative Diabetes Mellitus Type 1 or Diabetes Mellitus Type 2 Surgical History SURGICAL: Positive Tubal Ligation Social History SMOKING STATUS: Current every day smoker SECOND HAND EXPOSURE: Yes ED Exam General Limitations: Present no limitations General appearance: Present alert and in no apparent distress Head Head exam: Present atraumatic Eye Eye exam: Present normal appearance, PERRL and EOMI ENT ENT exam: Present normal exam, normal oropharynx and mucous membranes moist Neck Neck exam: Present normal inspection, full ROM and trachea midline Chest Chest inspection: Present normal inspection and symmetric chest wall rise Respiratory Respiratory exam: Present normal lung sounds bilaterally Cardiovascular Cardiovascular exam: Present regular rate, normal rhythm and normal heart sounds Abdominal Exam Abdominal exam: Present soft and normal bowel sounds Extremities Exam Extremities exam: Present normal inspection and full ROM Back Exam Back exam: Present normal inspection and full ROM Neurological Exam Neurological exam: Present alert, oriented X3 and CN II-XII intact Psychiatric Psychiatric exam: Present normal affect and normal mood Skin Skin exam: Present warm, dry, intact and normal color Course Quality Measures none Orders Category Date Time Status CT pelvis wo con Stat Exams 12/03/24 10:33 Completed Ketorolac Inj [Toradol Inj] Med 12/03/24 10:33 Discontinued 30 mg IM X1 ONE Vital Signs Vital signs: Vital Signs Temperature 98.4 F 12/03/24 10:16 Pulse Rate 87 12/03/24 10:16 Respiratory Rate 18 12/03/24 10:16 Blood Pressure 153/87 H 12/03/24 10:16 Pulse Oximetry (%) 96 12/03/24 10:16 Oxygen Delivery Method Room Air 12/03/24 10:16 O2 saturation 96% room air within normal limits Back Pain / Injury MDM Narrative MDM Narrative:: 59-year-old female presents emergency department today for complaints of left buttock pain radiating down the left leg On exam patient well-appearing does not appear ill or toxic no acute distress patient does have tenderness left sciatic notch with positive straight leg test consistent with sciatica Patient be treated symptomatically CT scan obtained no acute bony abnormality noted Patient discharged home in no distress to follow-up with primary care doctor in the next 24 to 48 hours and for any worsening symptoms to return to the ER immediately Patient data External records reviewed:: [facility] previous records Clinical information provided by:: patient Social determinants that could affect healthcare access:: none Patient has the following chronic illnesses:: None How is presenting disease/condition affected by chronic disease/condition?: no chronic disease Evaluation data The following diagnostics were reviewed and interpreted by me:: radiology exam(s) Lab and/or radiology exams considered but not ordered:: Radiology obtain Interpretation Summary: By me Medications / Prescriptions Medications or Prescriptions considered but not ordered:: Given Medication administrations:: Medication Administration History Discontinued Medications Ketorolac Tromethamine (Ketorolac Inj 60 Mg/2 Ml Vial) 30 mg IM X1 ONE Stop: 12/03/24 10:34 Last Admin: 12/03/24 10:46 Dose: 30 mg Documented By: DB Given Consultations Consultation(s) initiated? (list below): No Diagnosis Differential diagnosis back pain/injury: lumbar radiculopathy, sciatica, strain of lumbar region and other Most likely diagnosis given after review of the tests above:: Sciatica Admission Indicated Admission indicated?: not indicated Admission Request Was there a request for admission?: No Disposition Plan Disposition Plan: Discharge Discharge Attestation Discharge Attestation: The patient and all family members were given an opportunity to ask questions and understood the discharge instructions. Discharge instructions specifically effects, indications for sooner follow up or return to the emergency department, and the expected course of current diagnosis. Patient condition: Stable Discharge Plan Plan Patient Disposition: HOME (Self Care) Discharge Disposition comment: Stable Prescriptions/Referrals Prescriptions/Med Rec: New cyclobenzaprine 10 mg tablet 10 mg PO TID PRN (Reason: muscle spasm) 10 Days Qty: 30 0RF ibuprofen 600 mg tablet 600 mg PO Q6H Qty: 30 0RF No Action albuterol sulfate 2.5 mg /3 mL (0.083 %) solution for nebulization 2.5 mg inhalation Q4H PRN (Reason: shortness of breath or wheezing) Qty: 90 0RF nystatin-triamcinolone 100,000-0.1 unit/g-% cream 1 applic topical TID Qty: 60 1RF albuterol sulfate 90 mcg/actuation HFA aerosol inhaler 2 puff inhalation Q6H PRN (Reason: shortness of breath or wheezing) Qty: 8.5 3RF ipratropium-albuterol 0.5 mg-3 mg(2.5 mg base)/3 mL solution for nebulization 3 ml inhalation QID PRN (Reason: shortness of breath or wheezing) Qty: 90 0RF meclizine 50 mg tablet 50 mg PO BID PRN (Reason: dizziness) Qty: 30 0RF ibuprofen 600 mg tablet 600 mg PO Q6H Qty: 30 0RF Referrals: Juancho Rudolph PA-C [Primary Care Provider] - In 1 week Problem List Clinical Impression: Left sided sciatica Patient/Caregiver Discharge Instructions Education Materials: ED Sciatica Additional Instructions: Please follow up with your primary care doctor in the next 24-48hrs for any worsening symptoms return here immediately Print Language: Turkish Stand Alone Forms: Cady Award Info., Patient Portal Info Letter PA/FRANCESCO Supervising Physician PA/FRANCESCO Supervising Physician: Dr. neal
== END 2024-12-03 12:32 | disposition home or self-care (01) ==
PROVIDERS: Emergency Provider Emergency Medicine; PCP Family Medicine
DX: M54.42 Lumbago with sciatica, left side (principal)
CPT/HCPCS: 72192; 96372; 99284; J1885

== ENCOUNTER 2025-05-05 10:30 | Outpatient (RCR) | payer MEDICAID, SELFPAY ==
--- NOTE | 2025-04-29 09:03 | PTNOTE_ITS ---
PT OP Initial Eval Patient Information Outpatient Physical Therapy Treatment Date: 04/29/25 Visit Reasons: LEFT SIDED SCIATICA NERVE Medical Diagnosis: M54.32 Treatment Dx #1: Back Pain Treatment Dx #2: L/S Mobility Deficits Start of Care: 04/29/25 Date of Onset: 6 months ago Smoking Status Smoking Status: Current every day smoker Cessation Counseling Provided: LESLEY was advised that quitting smoking is the single most important factor to protect the health of themselves and their family. Discussed the benefits of quitting smoking with patient. Encouraged patient to quit smoking and provided Cessation assistance materials and resources. Tobacco Use: Cigarette Years smoked: 20 Are you interested in quitting?: No Would you like additional Smoking Cessation Counseling?: No Initial Assessment Subjective: Pt is a 59 y/o female reports of chronic back pain (12/18) worsening in the pasy 6 months. Pt now notice more left LE pain lately. Pt's past xray showed mild DDD of L5-S1. No MRI has been done thus far. Pt has limitation with sitting, standing, lifting, chores, self care, cooking, cleaning, and performing recreational activities. Objective: L/S AROM: all motions are WFL with end range pain in all plane Hip PROM: all motions are WFL except IR Hip MMTs: grossly 3/5 Special Test (+) sotelo (+) left SLR Assessment: Pt demonstrate back pain with mobility deficits leading to difficulty with ADLs. Pt will attempt physical therapy if pain persist Pt will be refer back to PCP for further consultation Short Term and Behavioral Assistant Goals 1) Increase L/S AROM WNL in 6 wks to be able to perform chores 2) Decrease back pain to 2/10 in 6 wks to be able to sit and stand more than 30 mins 3) Increase core strength WFL in 6 wks to be able to perform recreational activities 4) Increase hip MMTs grossly to 4-/5 in 6 wks to be able to walk more than 30 mins 5) Indep with HEP Treatment Plan 1) Manual Therapy 2) Therapeutic Activities 3) Therapeutic Exercises 4) Modalities (ice, heatl traction) Frequency and Duration: 2 x wk for 6 wks Certification Dates: 04/29/25 to 07/30/25 Procedure Charges OP PT Eval Mod Complex 30 minutes: Yes
--- NOTE | 2025-05-05 11:09 | PT.ODAYNRPT ---
PT Outpatient Daily Note OP Daily Note Outpatient Physical Therapy Treatment Date: 05/05/25 Visit Reasons: LEFT SIDED SCIATICA NERVE Subjective: Pt's back still hurting and feels about the same. No change in overall symptoms. Objective: Please see flow chart for list of ther performed Assessment: tolerate exercises with minimal pain Plan: Continue with PT Length of Time (minutes) of Treatment: 30 Minutes Procedure Charges Therapeutic Exercise 30 minutes: Yes
== END 2025-05-10 23:59 | disposition home or self-care (01) ==
LOC: CPTX 10:30
PROVIDERS: PCP Family Medicine; Referring Provider Family Medicine; Visit Provider Family Medicine
DX: M51.372 Other intervertebral disc degeneration, lumbosacral region with discogenic back pain and lower extremity pain (principal); Z71.6 Tobacco abuse counseling; F17.210 Nicotine dependence, cigarettes, uncomplicated
CPT/HCPCS: 97110; 97162

== ENCOUNTER 2025-06-09 08:00 | Outpatient (RCR) | payer MEDICAID, SELFPAY ==
--- NOTE | 2025-05-15 13:59 | PT.ODAYNRPT ---
PT Outpatient Daily Note OP Daily Note Outpatient Physical Therapy Treatment Date: 05/15/25 Visit Reasons: left side sciatica nerve Subjective: Pt is feeling dizzy thats why she cancelled last appt. Pt back feels okay, however, continues to have pain. Objective: Please see flow chart for list of ther ex performed Assessment: minimal changes with therapy session today; most exercises done supine due to dizziness. Pt tolerate all exercises perfomed Plan: Continue with PT Length of Time (minutes) of Treatment: 30 Minutes Procedure Charges Therapeutic Exercise 30 minutes: Yes
--- NOTE | 2025-05-20 09:32 | PT.ODAYNRPT ---
PT Outpatient Daily Note OP Daily Note Outpatient Physical Therapy Treatment Date: 05/20/25 Visit Reasons: left side sciatica nerve Subjective: Pt's back has good and bad days. Today patient is having a better day and can perform more standing exercises. No dizziness this morning. Objective: Please see flow chart for list of ther ex performed Assessment: able to progress patient to more standing exercises today due to no dizziness reported prior to PT session. Cues to pace with all exercises to decrease fatigue Plan: Continue with PT Length of Time (minutes) of Treatment: 30 Minutes Procedure Charges Therapeutic Exercise 30 minutes: Yes
--- NOTE | 2025-06-02 08:54 | PT.ODAYNRPT ---
PT Outpatient Daily Note OP Daily Note Outpatient Physical Therapy Treatment Date: 06/02/25 Visit Reasons: left side sciatica nerve Subjective: Pt continues to have good and bad days. Pt mentioned she still trouble with prolonged standing and walking. Objective: Please see flow chart for list of ther ex performed Assessment: progressing patient to more core exercises with good tolerance. Cues to decrease lumbar rotation with de-rotation exercise Plan: Continue with PT Length of Time (minutes) of Treatment: 30 Minutes Procedure Charges Therapeutic Exercise 30 minutes: Yes
--- NOTE | 2025-06-09 09:20 | PT.ODS1RPT ---
PT OP Progress/Discharge Note Date of Service: 06/09/25 Progress Note/DC Note Progress Note/Discharge Note: DC Note Patient Information Visit Reasons: left side sciatica nerve Medical Diagnosis: M54.32 Treatment Dx #1: Back Pain Service Continue Service or Discharge: Discharge Discharge Date: 06/09/25 Status Subjective: Pt's back has been hurting more lately with intermittent left leg pain. Due to symptoms Pt still has limitation with sitting, standing, walking, chores, self care, driving, and performing recreational activities Objective: L/S AROM: all motions are WFL with end range pain in all plane Hip PROM: all motions are WFL except IR Hip MMTs: grossly 3/5 Special Test (+) SLR Assessment: Pt demonstrate back pain with mobility deficits leading to difficulty with ADLs. Pt will no longer benefit from physical therapy due to minimal progress towards goals. Recommend lumbar spine MRI to help rule in/out nature of pain. Pt was instructed on HEP last session and educated to continue exercises to maintain overall mobility. Pt perfomed all exercises safely, thank you for your referrals. Plan: D/C home with HEP and follow up with MD BANKS Recommend L/S MRI Procedure Charges Therapeutic Exercise 30 minutes: Yes
== END 2025-06-10 23:59 | disposition home or self-care (01) ==
LOC: CPTX 08:00
PROVIDERS: PCP Family Medicine; Referring Provider Family Medicine; Visit Provider Family Medicine
DX: M51.371 Other intervertebral disc degeneration, lumbosacral region with lower extremity pain only (principal); M54.32 Sciatica, left side
CPT/HCPCS: 97110